=== PATIENT | male | born 1955 | race American Indian/Alaskan Native ===

== ENCOUNTER 2016-07-08 10:45 | Outpatient (CLI) | payer MEDICARE ==
--- NOTE | 2016-07-08 13:21 | XRay Report ---
Right knee: Pain. Periarticular spurs are present bilaterally. The articular surfaces are smooth. There is significant narrowing of the medial joint space. There is mild depression of the lateral tibial plateau. Spur formation is present involving the superior articular surface of the distal femur with the patella. The bones appear generally well mineralized. There is moderate vascular calcification. No swelling nor effusion. Impressions: Degenerative knee changes. No acute findings suspected.
--- NOTE | 2016-07-08 13:27 | XRay Report ---
Right hip: Hip pain. There is a total hip replacement. Both the acetabular and femoral components appear well positioned. There is no apparent complication and no obvious change compared to prior study of November 2015. Of additional note however is marked narrowing of the L4 L5 and probable L5-S1 levels with spondylosis. The vertebral bodies appear moderately dense. Multiple sclerotic lesions are present in both of the iliac crest and sacrum. The lesions involving the right ilium, mid and right portions of the sacrum as well as the lumbar bodies have increased in density. Impressions: 1. Worsening changes of metastatic prostate lesions to the bones. 2. Stable, unremarkable right hip prosthesis.
--- NOTE | 2016-07-08 15:40 | Nuclear Medicine Report ---
Bone scan: Prostate cancer with bone pain. Following injection of radionuclide whole-body imaging was obtained approximately 3 hours. Activity is identified in the urinary tract. There is a relatively good bone to background ratio. Diffuse areas of increased bone activity or present throughout the rib cage, sternum, multiple thoracic and lumbar vertebrae, inferior scapulae, right ilium and iliosacral region, both shoulders and proximal left humerus, and both femurs. Impressions: The findings are consistent with diffuse metastatic bone lesions.
== END 2016-07-08 10:46 | disposition home or self-care (01) ==
LOC: NM 10:45
PROVIDERS: ATTEND Internal Medicine Hematology & Oncology
DX: M17.11 Unilateral primary osteoarthritis, right knee (principal); M25.861 Other specified joint disorders, right knee; G89.3 Neoplasm related pain (acute) (chronic); C79.51 Secondary malignant neoplasm of bone; C61 Malignant neoplasm of prostate; E13.9 Other specified diabetes mellitus without complications; Z96.641 Presence of right artificial hip joint
CPT/HCPCS: 73502; 73562; 78306; A9503

== ENCOUNTER 2017-02-03 07:34 | Outpatient (CLI) | payer MEDICARE ==
--- NOTE | 2017-02-03 08:37 | XRay Report ---
LEFT SCAPULA RADIOGRAPHS INDICATION: Left scapula pain. COMPARISON: 12/20/2016 metastatic bone survey. FINDINGS: Frontal and Y views of the left shoulder/scapula demonstrate grossly intact bony articulation and contours. However, diffuse sclerotic bony metastases noted throughout the shoulder girdle and the imaged ribs, including largest approximately 5 cm sclerotic lesion in the left femoral neck and proximal shaft. CONCLUSION: Diffuse bony metastatic disease, including left shoulder involvement, as described. Thank you for the opportunity to participate in this patient's care.
--- NOTE | 2017-02-03 15:20 | Magnetic Resonance Report ---
MRI BRAIN WITHOUT CONTRAST INDICATION: Diffuse bony metastases. COMPARISON: 12/16/[address] FINDINGS: Noncontrast multiplanar and multisequence MRI of the brain again demonstrates symmetric, age-appropriate ventricles and sulci. Slight periventricular FLAIR and T2 weighted hyperintensities with few foci in the centrum semiovale bilaterally as on axial series 6, image 20 appearing somewhat perpendicular to the ventricles, making exclusion of a demyelinating process difficult. No acute infarct, hemorrhage, mass effect or midline shift. No abnormal extra axial masses or fluid collections. Normal major intracranial vascular flow voids. Normal posterior fossa with preserved basilar cisterns. Symmetric seventh and eighth nerve complexes. Few pontine hyperintensities measuring up to 4 mm as on axial images 10-11 may represent lacunar infarcts. Normal eye globes. Slight bilateral ethmoid sinusitis. Clear remainder imaged paranasal sinuses and mastoid air cells. Slight leftward nasal septal bowing anteriorly. Normal scalp. Nonspecific calvarial heterogeneity, not excluded pathologic in this patient with imaged upper cervical heterogeneity/possible metastatic marrow involvement/replacement as well. Normal midline structures without evidence of Chiari malformation. CONCLUSION: 1. No MRI evidence of brain metastases, though skull as also imaged upper cervical metastatic involvement suspected in this patient with known diffuse bony metastases from prostate carcinoma. Please correlate. 2. Various other findings as age-appropriate atrophy, mild microvascular changes/hyperintensities and slight sinusitis, amongst others, as above. Thank you for the opportunity to participate in this patient's care.
== END 2017-02-03 07:35 | disposition home or self-care (01) ==
LOC: MRI 07:34
PROVIDERS: ATTEND Radiology Radiation Oncology
DX: C79.51 Secondary malignant neoplasm of bone (principal); C61 Malignant neoplasm of prostate; M89.8X1 Other specified disorders of bone, shoulder; J32.2 Chronic ethmoidal sinusitis; J34.2 Deviated nasal septum; E10.9 Type 1 diabetes mellitus without complications; I10 Essential (primary) hypertension; I25.10 Atherosclerotic heart disease of native coronary artery without angina pectoris; F32.9 Major depressive disorder, single episode, unspecified; F41.9 Anxiety disorder, unspecified; Z79.899 Other long term (current) drug therapy
CPT/HCPCS: 70551

== ENCOUNTER 2017-05-15 15:36 | Outpatient (CLI) | payer MEDICARE ==
--- NOTE | 2017-05-15 16:17 | XRay Report ---
FINAL REPORT EXAM: XR CHEST ROUTINE 2V HISTORY: COUGH/ADENOCARCINOMA OF PROSTATE STAGE 4 TECHNIQUE: Chest two views PRIORS: None. FINDINGS: Right-sided chest port identified catheter tip at the SVC. No confluent pulmonary infiltrate identified. No pleural fluid collection seen. Pulmonary vasculature is unremarkable There are diffuse sclerotic skeletal metastasis. Patient has known history prostate carcinoma. IMPRESSION: No acute pulmonary findings Diffuse skeletal metastasis Chest port all all
== END 2017-05-15 15:37 | disposition home or self-care (01) ==
LOC: XRAY 15:36
PROVIDERS: ATTEND Internal Medicine Hematology & Oncology
DX: C79.51 Secondary malignant neoplasm of bone (principal); C61 Malignant neoplasm of prostate; E13.9 Other specified diabetes mellitus without complications; J06.9 Acute upper respiratory infection, unspecified; R05 Cough; I11.0 Hypertensive heart disease with heart failure; I50.9 Heart failure, unspecified; I25.10 Atherosclerotic heart disease of native coronary artery without angina pectoris; F32.9 Major depressive disorder, single episode, unspecified
CPT/HCPCS: 71046

== ENCOUNTER 2017-06-12 11:53 | Outpatient (CLI) | payer MEDICARE ==
[2017-06-12 13:03] LABS: Blood Urea Nitrogen 18 mg/dL (9-20)
[2017-06-12] MEDS ORDERED: FLUSH HEPARIN IV ONE (15:11)
[2017-06-12] MEDS: FLUSH HEPARIN IV ONE (15:17)
--- NOTE | 2017-06-12 16:35 | Cat Scan Report ---
FINAL REPORT PROCEDURE: CT ABDOMEN PELVIS W CON TECHNIQUE: Computerized axial tomography of the abdomen and pelvis was performed after the IV injection of iodinated nonionic contrast. HISTORY: ADENOCARCINOMA OF PROSTATE COMPARISON: Prior study 02/12/2016 FINDINGS: Lower Lung alexander: Fibrotic change appears to be visualized in the right lung base. Linear band of atelectasis seen in the left lung base. No effusions are identified. Upper Abdomen: The liver, the gallbladder, the adrenal glands, and the pancreas are unremarkable. The spleen is mildly enlarged measuring 13.7 centimeters otherwise is unremarkable. Kidneys, Ureters and Urinary bladder: Low-density nodules are seen in the renal cortex of the left kidney measuring up to 3.1 centimeters which appear to represent renal cortical cysts. The kidneys and visualized ureters otherwise are unremarkable. Distal ureters and urinary bladder are obscured by metallic artifact from bilateral hip prosthesis. Retroperitoneum: Abdominal aorta is unremarkable. No aneurysm is seen. Nonspecific subcentimeter lymph nodes are seen in the retroperitoneum. No pathologically enlarged lymph nodes are identified. Bowel: Mild diverticulosis seen in the sigmoid colon without evidence of diverticulitis. There is moderate to large amount of stool seen throughout the majority of the colon. The patient may be constipated. No evidence of bowel obstruction ascites or free intraperitoneal gas. The appendix is not visualized. Small umbilical hernia containing adipose tissue is visualized. No herniated loops of bowel are seen. Reproductive organs: Other: Extensive blastic metastatic disease is seen throughout the visualized thoracic spine lumbar spine and sacrum. This has progressed significantly compared to the prior study. There is also extensive blastic metastatic disease visualized in the right and left hemipelvis which has also progressed significantly since the last exam. The right hemipelvis is worse than the left hemipelvis. Bilateral hip prosthesis in place. No pathologic fractures are identified. Numerous blastic metastatic deposits visualized in ribs bilaterally. The extent of disease in the ribs has also progressed. IMPRESSION: Extensive blastic metastatic bone disease visualized. This has progressed significantly since the prior study. Stool pattern as described. The patient may be constipated. There is mild colonic diverticulosis without evidence of diverticulitis. Renal cortical cyst visualize left kidney. Bilateral hip prosthesis in place limiting visualization of the distal ureters and obscuring the urinary bladder. Mild splenomegaly.
--- NOTE | 2017-06-12 22:21 | Cat Scan Report ---
FINAL REPORT PROCEDURE: CT CHEST W CON TECHNIQUE: Computerized axial tomography of the chest was performed during the IV injection of iodinated nonionic contrast. HISTORY: ADENOCARCINOMA OF PROSTATE COMPARISON: No prior studies are available for comparison. TECHNICAL QUALITY: Satisfactory. FINDINGS: Pulmonary outflow tract, right and left main pulmonary arteries: No abnormality is seen. Pericardium: No evidence of pericardial effusion. Thoracic aorta: Atherosclerotic changes are visualized, no evidence of aneurysmal dilatation or dissection. Coronary arteries: Are partially calcified indicating atherosclerotic disease. Mediastinum and hilar regions: Nonspecific subcentimeter lymph nodes are visualized. No pathologically enlarged lymph nodes or masses are identified. Lung Hernández: Clear Upper abdomen: Fibrotic change visualized in the right lower lobe inferior laterally. Mild bronchiectasis visualized as well. Parenchymal densities visualized in the left upper lobe appear to represent fibrotic change or scarring. Acute atelectasis or subsegmental infiltrate is felt to be unlikely. Linear band of atelectasis seen in the left base. No masses are identified. Other: Extensive sclerotic changes seen throughout the ribs, the sternum, the thoracic spine, right and left scapula, medial aspect of the clavicles consistent with extensive bony metastatic disease. IMPRESSION: Extensive sclerotic bony changes visualized consistent with extensive bony metastatic disease. Fibrotic changes appear to be present as described as well as bronchiectasis. No dense areas of consolidations or pulmonary parenchymal masses are seen.
== END 2017-06-12 11:54 | disposition home or self-care (01) ==
LOC: CT 11:53
PROVIDERS: ATTEND Internal Medicine Hematology & Oncology
DX: C79.51 Secondary malignant neoplasm of bone (principal); C61 Malignant neoplasm of prostate; K57.30 Diverticulosis of large intestine without perforation or abscess without bleeding; K42.9 Umbilical hernia without obstruction or gangrene; N28.1 Cyst of kidney, acquired; J47.9 Bronchiectasis, uncomplicated; I70.0 Atherosclerosis of aorta; R16.1 Splenomegaly, not elsewhere classified; E13.9 Other specified diabetes mellitus without complications; I10 Essential (primary) hypertension; Z96.643 Presence of artificial hip joint, bilateral; Z72.0 Tobacco use
CPT/HCPCS: 36415; 71260; 74177; 82565; 84520; J1642; Q9967

== ENCOUNTER 2017-07-04 08:12 | Outpatient (CLI) | payer MEDICARE ==
--- NOTE | 2017-07-04 14:41 | Nuclear Medicine Report ---
BONE SCAN: History: Secondary malignant neoplasm of bone, prostate cancer. Findings: Compared to the bone scan dated 07/08/16. Numerous abnormal areas of increased radiotracer uptake are again identified throughout the bilateral ribs, sternum, thoracic and lumbar spine, proximal humeri, proximal femurs and right iliac bone. The overall pattern appears unchanged since the comparison exam. No definite new lesions are identified. IMPRESSION: No significant change since 07/08/16. Multiple bony lesions consistent with metastatic prostate cancer.
== END 2017-07-04 08:13 | disposition home or self-care (01) ==
LOC: NM 08:12
PROVIDERS: ATTEND Internal Medicine Hematology & Oncology
DX: C79.51 Secondary malignant neoplasm of bone (principal); C61 Malignant neoplasm of prostate; I11.0 Hypertensive heart disease with heart failure; I50.9 Heart failure, unspecified; E10.9 Type 1 diabetes mellitus without complications; Z72.0 Tobacco use
CPT/HCPCS: 78306; A9503

== ENCOUNTER 2017-11-17 15:58 | Outpatient (CLI) | payer MEDICARE ==
--- NOTE | 2017-11-17 17:04 | Cat Scan Report ---
FINAL REPORT PROCEDURE: CT thoracic spine without contrast. TECHNIQUE: Computerized axial tomography of the thoracic spine was performed from C7 - L1 without contrast material. HISTORY: ADENOCARCINOMA OF PROSTATE STAGE 4 COMPARISON: No prior studies are available for comparison. FINDINGS: The thoracic vertebrae have normal height and alignment. There are no fractures. There is no subluxation. There is extensive increased sclerosis throughout all of the vertebral bodies and the adjacent ribs. The findings are consistent with extensive osteoblastic metastases. The spinal canal is widely patent. There are no definite disc protrusions. The posterior elements appear intact. The paravertebral soft tissues are unremarkable. IMPRESSION: Extensive osseous metastatic disease. No evidence of an acute fracture.
--- NOTE | 2017-11-17 17:12 | Cat Scan Report ---
FINAL REPORT PROCEDURE: CT lumbar spine without contrast. TECHNIQUE: Computerized axial tomography of the lumbar spine was performed from T12 to the sacrum without contrast material. HISTORY: ADENOCARCINOMA OF PROSTATE STAGE 4 PLEASE CALL RESULTS TO PHYSICIAN. [phone] COMPARISON: No prior studies are available for comparison. FINDINGS: The lumbar vertebrae have normal height and alignment. There are no fractures. There is no spondylolysis. There is no spondylolisthesis. There is moderate disc space narrowing at L4-5. There are no definite disc protrusions, although this is much better evaluated by MRI scanning. The spinal canal is widely patent. The patient has had previous laminectomies done at L4 and L5. There is extensive increased sclerosis throughout the lumbosacral spine.. This involves the entire lumbar vertebrae, sacrum and the adjacent iliac bones. The findings are typical of severe osteoblastic metastatic disease. The paravertebral soft tissues are unremarkable. IMPRESSION: Severe osteoblastic metastatic disease. Previous laminectomies of L4 and L5. Moderate degenerative disc space narrowing at L4-5. I attempted to call these results to [phone] on 11/17/2017 at 5:10 p.m. EST. 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
== END 2017-11-17 15:59 | disposition home or self-care (01) ==
LOC: CT 15:58
DX: C61 Malignant neoplasm of prostate (principal); C79.51 Secondary malignant neoplasm of bone; M47.896 Other spondylosis, lumbar region; E78.5 Hyperlipidemia, unspecified; K21.9 Gastro-esophageal reflux disease without esophagitis; I10 Essential (primary) hypertension; E11.9 Type 2 diabetes mellitus without complications; I25.10 Atherosclerotic heart disease of native coronary artery without angina pectoris; E78.00 Pure hypercholesterolemia, unspecified; Z87.891 Personal history of nicotine dependence
CPT/HCPCS: 72128; 72131

== ENCOUNTER 2017-11-26 14:55 | Emergency (ER) | payer MEDICARE ==
[~2017-11-26 14:55] MED LIST: ADRENALIN ONE
--- NOTE | 2017-11-26 15:44 | Emergency Department Report ---
ED CPR HPI - General Chief Complaint: Cardiac Arrest/CPR Stated Complaint: CARDIAC ARREST Time Seen by Provider: 11/26/17 14:59 Source: EMS Mode of arrival: Stretcher Limitations: Other - History of Present Illness Initial Comments: Mr. Nguyen has history of diabetes hypertension coronary artery disease hepatitis C and metastatic prostate cancer who presents in cardiac arrest. I obtained history from life partner and paramedics. Patient had hypoglycemia since last night. Blood sugar had been vacillating. He took his medications this morning. My partner discovered him to be unresponsive this morning. She did not perform CPR. Paramedics arrived to find the patient without a pulse in asystole. Patient received chest compressions, amiodarone, epinephrine and calcium chloride. Did briefly obtain return of spontaneous circulation. He received chemotherapy on Monday. First chemotherapy infusion. Had been taking oral chemotherapy. PCP Tre Gibson. Oncologist Dr. Melgar? Complaint: found unresponsive Place: home Bystander CPR Performed: No Downtime Before ACLS Arrival (mins): 30 Initial Findings in the Field: unresponsive ROSC in the Field: Yes Treatments Prior to Arrival: intubation, epinephrine mgs #, amiodarone, calcium - Related Data Home Medications Medication Instructions Recorded Confirmed Last Taken Insulin Regular, Human [HumuLIN R] 12 units SUB-Q TID 08/09/16 11/04/17 08/08/16 Iron Fum,Ps/Folic/Bcomp,C No.9 1 each PO DAILY 08/09/16 11/04/17 08/08/16 [Integra Plus Capsule] Zytiga 250 mg PO BID 08/27/17 11/04/17 Unknown Previous Rx's Medication Instructions Recorded Last Taken Type Metoprolol Xl [Metoprolol 25 mg PO DAILY #30 tablet 08/30/17 Unknown Rx SUCCINATE ER TAB] Omeprazole 40 mg PO DAILY #30 capsule. 08/30/17 Unknown Rx Pravastatin [Pravachol] 40 mg PO QHS #30 tablet 08/30/17 Unknown Rx Cholestyramine (with Sugar) 4 gm PO QDAY #14 packet 11/11/17 Unknown Rx [Questran] levoFLOXacin [Levaquin TAB] 500 mg PO Q24HR #5 tablet 11/11/17 Unknown Rx Allergies Allergy/AdvReac Type Severity Reaction Status Date / Time No Known Allergies Allergy Verified 06/12/17 15:10 ED Review of Systems ROS: Stated complaint: CARDIAC ARREST Other details as noted in HPI Comment: Unobtainable due to pts medical conditions ED Past Medical Hx - Past Medical History Hx Hypertension: Yes Hx Heart Attack/AMI: Yes (5 yr ago) Hx Congestive Heart Failure: No Hx Diabetes: Yes Hx Deep Vein Thrombosis: No Hx Liver Disease: No Hx Renal Disease: No Hx Arthritis: No Hx Kidney Stones: Yes Hx Asthma: No Hx COPD: No Hx Dementia: No Hx HIV: No Additional medical history: Prostate Cancer, recently diagnosed, also states has spread to bones. - Surgical History Hx Coronary Stent: Yes (Cardiac stent to RCA in 2012) Hx Open Heart Surgery: No Hx Pacemaker: No Hx Internal Defibrillator: No Hx Cholecystectomy: No Hx Appendectomy: No Hx Breast Surgery: No Additional Surgical History: cardiac stent, bilateral hip replacement - Social History Smoking Status: Never Smoker - Medications Home Medications: Home Medications Medication Instructions Recorded Confirmed Last Taken Type Insulin Regular, Human [HumuLIN R] 12 units SUB-Q TID 08/09/16 11/04/17 History Iron Fum,Ps/Folic/Bcomp,C No.9 1 each PO DAILY 08/09/16 11/04/17 08/08/16 History [Integra Plus Capsule] Zytiga 250 mg PO BID 08/27/17 11/04/17 Unknown History Metoprolol Xl [Metoprolol 25 mg PO DAILY #30 tablet 08/30/17 11/04/17 Unknown Rx SUCCINATE ER TAB] Omeprazole 40 mg PO DAILY #30 capsule. 08/30/17 11/04/17 Unknown Rx Pravastatin [Pravachol] 40 mg PO QHS #30 tablet 08/30/17 11/04/17 Unknown Rx Cholestyramine (with Sugar) 4 gm PO QDAY #14 packet 11/11/17 Unknown Rx [Questran] levoFLOXacin [Levaquin TAB] 500 mg PO Q24HR #5 tablet 11/11/17 Unknown Rx ED Physical Exam - General Limitations: Other General appearance: other (lifeless) - Head Head exam: Present: atraumatic, normocephalic - Eye Eye exam: Present: other (fixed dilated pupils). Absent: scleral icterus, conjunctival injection - ENT ENT exam: Present: other (ETT in mouth) - Neck Neck exam: Present: normal inspection - Respiratory Respiratory exam: Present: other (no spontaneous respirations) - Cardiovascular Cardiovascular Exam: Present: other (no cardiac exams and auscultation) - GI/Abdominal GI/Abdominal exam: Present: distended - Extremities Exam Extremities exam: Present: other (compression stockings in place, no deformity) - Neurological Exam Neurological exam: Present: other (lifeless no spontaneous movement) - Psychiatric Psychiatric exam: Present: other (lifeless) - Skin Skin exam: Present: warm, pallor, other ED Medical Decision Making - Medical Decision Making Patient arrived in cardiac arrest. Asystole noted on the monitor upon arrival. Patient underwent 30 minutes of ACLS per paramedics. Further resuscitation attempts deemed futile. I informed my partner of patient's . Time of 1445 Critical care attestation.: If time is entered above; I have spent that time in minutes in the direct care of this critically ill patient, excluding procedure time. ED Disposition Clinical Impression: Cardiac arrest, Metastatic malignant neoplasm to prostate, Diabetes mellitus, CAD (coronary artery disease) Disposition: DC-20 Is pt being admited?: No Does the pt Need Aspirin: No Time of Disposition: 14:45
== END 2017-11-26 15:00 ==
LOC: ED 14:55
DX: I46.9 Cardiac arrest, cause unspecified (principal); E11.9 Type 2 diabetes mellitus without complications; I25.10 Atherosclerotic heart disease of native coronary artery without angina pectoris; I10 Essential (primary) hypertension; I25.2 Old myocardial infarction; Z85.46 Personal history of malignant neoplasm of prostate; Z87.442 Personal history of urinary calculi; Z79.4 Long term (current) use of insulin
CPT/HCPCS: 99285; J0171; 92950